=== PATIENT | male | born 1990 | race Caucasian/White ===

== ENCOUNTER 2017-11-18 19:19 | Inpatient (IN) | payer MEDICAID ==
[~2017-11-18] VITALS: Ht 172.7 cm; Wt 73.3 kg
[2017-11-18] MEDS ORDERED: RISPC25 IM (19:39)
[2017-11-18 20:08] LABS: BASOPHILS % (AUTO) 0.7 % (0.0-2.0); EOSINOPHILS % (AUTO) 3.7 % (1.0-6.0); HEMOGLOBIN 12.6 g/dL (13.5-17.5); LYMPHOCYTES # (AUTO) 2.9 K/uL (1.0-4.8); LYMPHOCYTES % (AUTO) 46.5 % (22.0-44.0); MEAN CORPUSCULAR HEMOGLOBIN 31.2 pg (26.0-34.0); MEAN CORPUSCULAR VOLUME 92 fL (80-100); MONOCYTES # (AUTO) 0.9 K/uL (0.1-1.0); MONOCYTES % (AUTO) 13.8 % (2.0-9.0); NEUTROPHILS # (AUTO) 2.2 K/uL (1.8-7.7); NEUTROPHILS % (AUTO) 35.3 % (40.0-70.0); PLATELET COUNT (AUTO) 233 K/uL (150-450); RED BLOOD CELL COUNT(AUTO) 4.04 MIL/uL (4.50-5.90); RED CELL DISTRIBUTION WIDTH 13.5 % (11.5-14.5)
[2017-11-18 20:19] LABS: ANION GAP 11 mmol/L (8-16); CALCIUM, TOTAL 8.2 mg/dL (8.8-10.5); CARBON DIOXIDE 26 mmol/L (22-29); CHLORIDE 104 mmol/L (98-107); CREATININE 0.88 mg/dL (0.60-1.30); GLOMERULAR FILTR. RATE CALC > 60 mL/min (>60); GLUCOSE,RANDOM 126 mg/dL (70-110); POTASSIUM 3.6 mmol/L (3.5-5.1); SODIUM SERUM 141 mmol/L (136-145); UREA NITROGEN, BLOOD 6 mg/dL (7-18)
[2017-11-18 20:25] LABS: ALANINE AMINOTRANSFERASE 18 U/L (12-78); ALBUMIN 3.2 g/dL (3.4-5.0); ALKALINE PHOSPHATASE 72 U/L (46-116); ASPARTATE AMINOTRANSFERASE 13 U/L (15-37); BILIRUBIN,TOTAL 0.2 mg/dL (0.1-1.0); TOTAL PROTEIN, SERUM 6.3 g/dL (6.4-8.2)
[2017-11-18] MEDS ORDERED: HALOPERIDOL 5 MG TABLET PO PRN (21:30)
[2017-11-19 02:10] VITALS: BP 117/63
[2017-11-19] MEDS: ZOLPIDEM TARTRATE 10 MG TABLET PO PRN (02:11)
[2017-11-19 08:56] LABS: HEMOGLOBIN A1C 4.8 % (4.5-6.2)
[2017-11-19 09:08] LABS: FREE T4 (FREE THYROXINE) 0.97 ng/dL (0.76-1.46); THYROID STIMULATING HORMONE 1.2 uIU/mL (0.36-3.74)
[2017-11-19 09:43] VITALS: BP 126/80
[2017-11-19] MEDS: RisperiDONE 2 MG TABLET PO SCH ×2 (12:38→20:21)
[2017-11-19 16:30] VITALS: BP 105/76
[2017-11-20 06:16] VITALS: BP 106/63
[2017-11-20 08:22] VITALS: BP 108/60
[2017-11-20] MEDS: RisperiDONE 2 MG TABLET PO SCH ×2 (09:35→20:15)
[2017-11-20 16:20] VITALS: BP 110/67
[2017-11-21 01:48] VITALS: BP 104/61
[2017-11-21] MEDS: RisperiDONE 2 MG TABLET PO SCH ×2 (08:26→20:39)
[2017-11-21 08:29] VITALS: BP 104/60
[2017-11-21 16:00] VITALS: BP 111/65
[2017-11-21] MEDS: ZOLPIDEM TARTRATE 10 MG TABLET PO PRN (21:11)
[2017-11-22 06:18] VITALS: BP 108/67
[2017-11-22 08:40] VITALS: BP 103/71
[2017-11-22] MEDS: RisperiDONE 2 MG TABLET PO SCH ×2 (09:37→21:37)
[2017-11-22 16:00] VITALS: BP 108/77
[2017-11-22] MEDS: ZOLPIDEM TARTRATE 10 MG TABLET PO PRN (21:37)
[2017-11-23 02:11] VITALS: BP 106/67
[2017-11-23 09:17] VITALS: BP 107/60
[2017-11-23] MEDS: RisperiDONE 2 MG TABLET PO SCH ×2 (09:50→20:22)
[2017-11-23] MEDS: SERTRALINE HCL 50 MG TABLET PO SCH (12:57)
[2017-11-23 16:44] VITALS: BP 107/66
[2017-11-23] MEDS: ZOLPIDEM TARTRATE 10 MG TABLET PO PRN (20:22)
[2017-11-24 01:51] VITALS: BP 103/63
[2017-11-24 08:41] VITALS: BP 107/66
[2017-11-24] MEDS ORDERED: PALIPERIDONE PALMITATE 234 MG/1.5 ML SYRINGE IM ONE (09:15)
[2017-11-24] MEDS: SERTRALINE HCL 50 MG TABLET PO SCH (09:25)
[2017-11-24] MEDS: RisperiDONE 2 MG TABLET PO SCH ×2 (09:25→20:51)
[2017-11-24 16:25] VITALS: BP 115/65
[2017-11-24] MEDS: ZOLPIDEM TARTRATE 10 MG TABLET PO PRN (20:51)
[2017-11-24] MEDS: LORazepam 2 MG TABLET PO PRN (20:51)
[2017-11-25 06:44] VITALS: BP 111/67
[2017-11-25 08:18] VITALS: BP 114/62
[2017-11-25] MEDS: LORazepam 2 MG TABLET PO PRN ×2 (09:20→16:33)
[2017-11-25] MEDS: RisperiDONE 2 MG TABLET PO SCH ×2 (09:20→20:04)
[2017-11-25] MEDS: SERTRALINE HCL 50 MG TABLET PO SCH (09:20)
[2017-11-25] MEDS: NICOTINE 21 MG/24 HOUR PATCH TD SCH (09:26)
[2017-11-25 16:43] VITALS: BP 119/80
[2017-11-25] MEDS: ZOLPIDEM TARTRATE 10 MG TABLET PO PRN (20:31)
[2017-11-26 06:28] VITALS: BP 109/62
[2017-11-26 08:35] VITALS: BP 110/63
[2017-11-26] MEDS: RisperiDONE 2 MG TABLET PO SCH ×2 (10:05→20:39)
[2017-11-26] MEDS: SERTRALINE HCL 100 MG TABLET PO SCH (10:06)
[2017-11-26] MEDS: NICOTINE 21 MG/24 HOUR PATCH TD SCH (10:06)
[2017-11-26] MEDS: LORazepam 2 MG TABLET PO PRN ×2 (10:07→18:33)
[2017-11-26 16:54] VITALS: BP 103/62
[2017-11-26] MEDS: ZOLPIDEM TARTRATE 10 MG TABLET PO PRN (20:39)
[2017-11-27 05:27] VITALS: BP 110/62
[2017-11-27] MEDS: LORazepam 2 MG TABLET PO PRN ×2 (08:11→16:32)
[2017-11-27] MEDS: SERTRALINE HCL 100 MG TABLET PO SCH (08:11)
[2017-11-27] MEDS: RisperiDONE 2 MG TABLET PO SCH ×2 (08:11→20:01)
[2017-11-27] MEDS: NICOTINE 21 MG/24 HOUR PATCH TD SCH (08:12)
[2017-11-27 08:21] VITALS: BP 110/68
[2017-11-27 16:17] VITALS: BP 107/68
[2017-11-28 05:53] VITALS: BP 105/60
[2017-11-28] MEDS: RisperiDONE 2 MG TABLET PO SCH ×2 (08:29→21:11)
[2017-11-28] MEDS: SERTRALINE HCL 100 MG TABLET PO SCH (08:29)
[2017-11-28] MEDS: LORazepam 2 MG TABLET PO PRN ×2 (08:29→17:41)
[2017-11-28] MEDS: NICOTINE 21 MG/24 HOUR PATCH TD SCH (08:54)
[2017-11-28] MEDS ORDERED: PALIPERIDONE PALMITATE 156 MG/ML SYRINGE IM ONE (09:00)
[2017-11-28 09:51] VITALS: BP 124/76
[2017-11-28 16:33] VITALS: BP 108/78
[2017-11-29 05:55] VITALS: BP 103/58
[2017-11-29] MEDS: RisperiDONE 2 MG TABLET PO SCH (08:25)
[2017-11-29] MEDS: SERTRALINE HCL 100 MG TABLET PO SCH (08:25)
[2017-11-29] MEDS: NICOTINE 21 MG/24 HOUR PATCH TD SCH (08:25)
[2017-11-29] MEDS: LORazepam 2 MG TABLET PO PRN (08:25)
[2017-11-29 08:40] VITALS: BP 119/60
[2017-11-29] MEDS ORDERED: RISP2 PO (09:13)
[2017-11-29] MEDS ORDERED: SERT100T12 PO (09:13)
[2017-12-26] MEDS ORDERED: PALIPERIDONE PALMITATE 234 MG/1.5 ML SYRINGE IM SCH (09:00)
== END 2017-11-29 13:23 | disposition home or self-care (01) | DRG 753 ==
LOC: EMS 19:20 → B2S 22:26
DX: F31.4 Bipolar disorder, current episode depressed, severe, without psychotic features (principal); R45.851 Suicidal ideations; Z91.14 Patient's other noncompliance with medication regimen; F20.9 Schizophrenia, unspecified; Z59.0 Homelessness; F17.210 Nicotine dependence, cigarettes, uncomplicated; D64.9 Anemia, unspecified; Z79.899 Other long term (current) drug therapy
CPT/HCPCS: 83036; 84439; 84443; 90686; 99285; G0480

== ENCOUNTER 2020-05-01 11:16 | Emergency (ER) | payer MEDICAID, OTHER ==
[~2020-05-01] VITALS: Ht 170.2 cm; Wt 100.0 kg
[~2020-05-01 11:16] MED LIST: RISP2TAB45 PO; SERT-162 PO
[2020-05-01 11:18] VITALS: BP 95/60
[2020-05-01] MEDS ORDERED: PALI39DI IM (11:22)
[2020-05-01] MEDS ORDERED: IBUP-2070 PO (11:22)
[2020-05-01] MEDS ORDERED: TRAZ-257 PO (11:22)
[2020-05-01] MEDS ORDERED: IBUPROFEN 600 MG TABLET PO ONE (12:00)
[2020-05-01] MEDS ORDERED: PENICILLIN V POTASSIUM 500 MG TABLET PO ONE (12:00)
== END 2020-05-01 12:47 | disposition home or self-care (01) ==
LOC: EMS 11:16
DX: K08.89 Other specified disorders of teeth and supporting structures (principal); F31.9 Bipolar disorder, unspecified; F20.9 Schizophrenia, unspecified; F17.210 Nicotine dependence, cigarettes, uncomplicated
CPT/HCPCS: 99283